=== PATIENT | male | born 1960 | race Caucasian/White ===

== ENCOUNTER → 2022-07-21 | Day surgery (SDC) | payer OTHER ==
[~2022-07-21] VITALS: Ht 172.7 cm; Wt 72.6 kg
== END | disposition home or self-care (01) ==
LOC: CIR.AMB 07:00
PROVIDERS: ATTEND Otolaryngology
DX: D37.032 Neoplasm of uncertain behavior of the submandibular salivary glands (principal); I88.8 Other nonspecific lymphadenitis; R22.1 Localized swelling, mass and lump, neck; Z20.822 Contact with and (suspected) exposure to COVID-19